=== PATIENT | female | born 1985 | race Caucasian/White ===

== ENCOUNTER 2018-11-13 10:30 | Day surgery (SDC) | payer OTHER ==
[~2018-11-13 10:30] MED LIST: CEFAZOLIN 2 GM/50 ML (PMX) 50 ML IVPB; SOD CHLORIDE 0.9% 1,000 ML IV
[2018-11-13] MEDS ORDERED: hydrALAzine 20 MG INJ IV (13:00)
[2018-11-13] MEDS ORDERED: LABETALOL HCL 20MG INJ IV (13:00)
[2018-11-13] MEDS ORDERED: OXYCODONE/ACETAMINOPHEN (5/325) TAB PO (13:00)
[2018-11-13] MEDS ORDERED: ONDANSETRON 4 MG INJ IV ×2 (13:00→14:00)
[2018-11-13] MEDS ORDERED: FENTAnyl 50 MCG/ML VIAL IV (13:00)
[2018-11-13] MEDS ORDERED: HYDROmorphONE 1 MG/5 ML IV SYRINGE IV ×3 (13:00)
[2018-11-13] MEDS ORDERED: MEPERIDINE 25 MG INJ IV (13:00)
[2018-11-13] MEDS ORDERED: DIPHENHYDRAMINE 50 MG INJ IV (13:00)
[2018-11-13] MEDS ORDERED: PROCHLORPERAZINE 10 MG INJ IV (13:00)
[2018-11-13] MEDS ORDERED: EPHEDrine SULFATE 50 MG/5 ML SYG IV (13:00)
[2018-11-13] MEDS ORDERED: MIDAZOLAM 1 MG/ML 2 ML INJ (13:06)
[2018-11-13] MEDS ORDERED: FENTAnyl 50 MCG/ML VIAL (13:16)
[2018-11-13] MEDS ORDERED: PROPOFOL 40 ML (13:16)
[2018-11-13] MEDS ORDERED: LIDOCAINE 2% (SDV) 5 ML INJ (13:16)
[2018-11-13] MEDS ORDERED: DEXAMETHASONE 4 MG/ML 5 ML INJ (13:17)
[2018-11-13] MEDS ORDERED: ONDANSETRON 4 MG INJ (13:17)
[2018-11-13] MEDS ORDERED: CEFAZOLIN 1 GM INJ (13:17)
[2018-11-13] MEDS ORDERED: PHENYLephrine (100 MCG/ML) 5ML SYG (13:24)
[2018-11-13] MEDS: BACITRACIN/POLYMYXIN 28.35 GM OINT TOP (13:37)
[2018-11-13] MEDS: BUPIVACAINE 0.5%/EPI (SDV) 30 ML INJ (13:38)
[2018-11-13] MEDS ORDERED: IBUPROFEN 600 MG TAB PO (14:00)
== END 2018-11-13 15:45 | disposition home or self-care (01) ==
LOC: SDS 10:30
DX: L72.11 Pilar cyst (principal)
CPT/HCPCS: 11423; 84703; 88307